=== PATIENT | female | born 1990 | race Hispanic/Latino ===

== ENCOUNTER 2019-05-13 02:46 | Emergency (ER) | payer SELFPAY ==
[~2019-05-13] VITALS: Ht 152.4 cm; Wt 108.9 kg
--- OUTSIDE RECORDS SUMMARY | 2019-05-13 02:49 | XMS REPORT ---
Author [facility] Address Unknown Phone Unavailable Care Team Providers Care Community Marketing Coordinator Name Role Phone Unavailable Unavailable Payers Payer Name Policy Type Policy Number Effective Date Expiration Date Problems This patient has no known problems. Allergies, Adverse Reactions, Alerts Allergy Name Allergy Type Status Severity Reaction(s) Onset Date Inactive Date Treating Clinician Comments No Known Allergies DA Active U 2019-03-28 00:00:00 No Known Allergies DA Active U 2018-10-29 00:00:00 No Known Allergies DA Active U 2016-08-11 00:00:00 Medications This patient has no known medications. Results Test Description Test Time Test Comments Text Results Atomic Results Result Comments CHLAMYDIA GC DNA BY PCR 2019-04-30 08:33:00 C. TRACHOMATIS DNA BY PCR (test code=CHLAMTDNA) TEST NOT PERFORMED () Test Not Performed. The APTIMA(R) Swab Transport receivedwas submitted with a cleaning swab (white shaft). Thecorrect swab is the blue or pink shaft collection swab. Seecollection instructions provided with the transport device.Notified Josh Mayorga at your facility.04/02/2019Timothy N. GONORRHOEAE DNA BY PCR (test code=NGONORDNA) TEST NOT PERFORMED () Test not performedPerformed At: [facility] [place], [place] [id number] miguel Rodriguez MD Ph:[phone] At: [facility] [address] [place], [place] [id number] Fortunato Patel MD Ph:[phone] [id number] 21:59:00* Test Item Value Reference Range Comments GLUBED (test code=GLUBED) 285 mg/dL 74-106 Performed by certified tractor operator helper at [facility] - CT HEAD/BRAIN W/O [id number] 20:29:00 Name: GUMARO GAXIOLA [facility] : 1990 Age/S: 28 / F [address] [facility] Unit #: [id number] Loc: [place] [address] Phys: Singh Smyth MD Acct: [id number] Dis Date: Status: REG ER PHONE #: [phone] Exam Date: 03/28/20192014 FAX #: [phone] Reason: HEADACHE AND WEIGHT LOSS EXAMS: CPT CODE: [id number] CT HEAD/BRAIN W/O CONT 46624 REASON FOR EXAM: HEADACHE AND WEIGHT LOSS EXAM ORDER DATE: 03/28/2019 6:47 PM Ordering M.D.: Singh Smyth MD PROCEDURE: - CT HEAD/BRAIN W/O CONT COMPARISON: FINDINGS: CT images of the brain were obtained without IV contrast. Dose modulation, iterative reconstruction, and/or weight based adjustment of the MA/KV was utilized to reduce the radiation dose to as low as reasonably achievable. The brain parenchyma is within normal limits. The al-white matter delineation is unremarkable. The ventricles, cisterns, and sulci are unremarkable. There is no evidence of hemorrhage, mass, mass effect. There is no evidence of acute or old infarct. The calvarium is intact. IMPRESSION: Unremarkable brain. at 2028 Reported and signed by : Silvio Reyes M.D. CC: Singh Smyth MD Technologist:AYSE CONWAY, RT(R) CT CTDI: DLP: Trnscb Date/Time: 03/28/2019 (2028) JulioL Orig Print D/T: S: 03/28/2019 (2031) PAGE 1 Signed Report - CT ABD PELVIS W/O [id number] 20:28:00 Name: GUMARO GAXIOLA [facility] : 1990 Age/S: 28 / F [address] [facility] Unit #: [id number] Loc: [place] [address] Phys: Sumit Smyth MD Acct: [id number] Di s Date: Status: REG ER PHONE #: [phone] Exam Date: 03/28/20192023 FAX #: Reason: LEFT FLANK RADIATING TO THE GROIN EXAMS: CPT CODE: [id number] CT ABD PELVIS W/O CONT 05519 REASON FOR EXAM: LEFT FLANK RADIATING TO THE GROIN EXAM ORDER DATE: 03/28/2019 6:47 PM Ordering MEmilee: Singh Smyth MD PROCEDURE: - CT ABD PELVIS W/O CONT COMPARISON: FINDINGS: CT imag es of the abdomen and pelvis were obtained without IV and without oral con trast at 5mm. Dose modulation, iterative reconstruction, and/or weight bas ed adjustment of the MA/KV was utilized to reduce the radiation dose to as low as reasonably achievable. The liver, spleen, and pancr eas are grossly within normal limits. The gall bladder is unremarkable by CT. The kidneys are within normal limits. The urinary bladder is unremarkable. The colon, small bowel, and stomach are within normal limits without evidence of obstruction. The appendix is unremark able No evidence of free air or free fluid. The uterus is unremark able. IMPRESSION: 5.5 cm left ovarian cyst. Small focal (2 cm) hypodense area in the left lobe of the liver near the gallbladder sugges tive of possible fatty focal hepatic infiltration. Leelee dennis Signed by Blanca Reyes on 03/28/2019 at 2027 Angel coburn and signed by: Silvio Reyes M.D. CC: Singh Smyth MD Technologist:AYSE CONWAY, RT(R) CT CTDI: DLP: Trnscb Date/Time: 03/28/2019 (2027) [email or web address] Orig Print D/T: S: 03/28/2019 (2030) PAGE 1 Signed Report BASIC METABOLIC [id number] 20:05:00* Test Item Value Reference Range Comments SODIUM (test code=NA) 134 mmol/L 136-145 POTASSIUM (test code=K) 3.6 mmol/L 3.5-5.1 CHLORIDE (test code=CL) 97.0 mmol/L 98-107 CARBON DIOXIDE (test code=CO2) 29.0 mmol/L 21-32 ANION GAP (test code=GAP) 11.6 10-20 GLUCOSE (test code=GLU) 332 mg/dL 74-106 BLOOD UREA NITROGEN (test code=BUN) 10 mg/dL 7-18 GLOMERULAR FILTRATION RATE (test code=GFR) > 60 mL/min >=60 Estimated GFR by using Modified MDRD formula.Chronic kidney disease is defined as either kidney damageor GFR <60 mL/min/1.73 m2 for >3 months. CREATININE (test code=CREAT) 0.70 mg/dL 0.55-1.02 Note change in reference range due to change in reagent. BUN/CREATININE RATIO (test code=BUN/CREA) 15.2 10-20 CALCIUM (test code=CA) 9.2 mg/dL 8.5-10.1 HEPATIC FUNCTION [id number] 20:05:00* Test Item Value Reference Range Comments TOTAL PROTEIN (test code=PROT) 8.3 gram/dL 6.4-8.2 ALBUMIN (test code=ALB) 3.6 g/dL 3.4-5.0 GLOBULIN (test code=GLOB) 4.7 gram/dL 2.7-4.2 ALBUMIN/GLOBULIN RATIO (test code=A/G) 0.8 0.75-1.50 BILIRUBIN TOTAL (test code=BILT) 0.50 mg/dL 0.0-1.0 BILIRUBIN DIRECT (test code=BILD) 0.13 mg/dL 0.0-0.20 SGOT/AST (test code=AST) 20 IUnit/L 15-37 SGPT/ALT (test code=ALT) 55 IUnit/L 12-78 ALKALINE PHOSPHATASE TOTAL (test code=ALKP) 108 IUnit/L 45-117 Note change in reference range due to change in reagent. HCG SERUM [id number] 20:05:00* Test Item Value Reference Range Comments HCG SERUM QUAL (test code=HCGQL) NEGATIVE NEGATIVE This HCGQL test is NOT applicable for MALE patients.Check with nurse about probable order error.If Tumor Marker Test needed, nurse should order test "HCGTU"(Test #550.51921) BASIC METABOLIC [id number] 19:54:00* Test Item Value Reference Range Comments SODIUM (test code=NA) 134 mmol/L 136-145 POTASSIUM (test code=K) 3.6 mmol/L 3.5-5.1 CHLORIDE (test code=CL) 97.0 mmol/L 98-107 CARBON DIOXIDE (test code=CO2) mmol/L 21-32 ANION GAP (test code=GAP) 10-20 GLUCOSE (test code=GLU) mg/dL 74-106 BLOOD UREA NITROGEN (test code=BUN) mg/dL 7-18 GLOMERULAR FILTRATION RATE (test code=GFR) mL/min >=60 CREATININE (test code=CREAT) mg/dL 0.55-1.02 BUN/CREATININE RATIO (test code=BUN/CREA) 10-20 CALCIUM (test code=CA) mg/dL 8.5-10.1 HEPATIC FUNCTION [id number] 19:54:00* Test Item Value Reference Range Comments TOTAL PROTEIN (test code=PROT) gram/dL 6.4-8.2 ALBUMIN (test code=ALB) g/dL 3.4-5.0 GLOBULIN (test code=GLOB) gram/dL 2.7-4.2 ALBUMIN/GLOBULIN RATIO (test code=A/G) 0.75-1.50 BILIRUBIN TOTAL (test code=BILT) mg/dL 0.0-1.0 BILIRUBIN DIRECT (test code=BILD) mg/dL 0.0-0.20 SGOT/AST (test code=AST) IUnit/L 15-37 SGPT/ALT (test code=ALT) IUnit/L 12-78 ALKALINE PHOSPHATASE TOTAL (test code=ALKP) IUnit/L 45-117 HCG SERUM [id number] 19:54:00* Test Item Value Reference Range Comments HCG SERUM QUAL (test code=HCGQL) NEGATIVE NEGATIVE This HCGQL test is NOT applicable for MALE patients.Check with nurse about probable order error.If Tumor Marker Test needed, nurse should order test "HCGTU"(Test #550.86326) CBC W/AUTO [id number] 19:53:00* Test Item Value Reference Range Comments WHITE BLOOD CELL (test code=WBC) 8.9 K/mm3 4.5-12.5 RED BLOOD CELL (test code=RBC) 4.79 mill/mm3 3.7-5.2 HEMOGLOBIN (test code=HGB) 14.5 gram/dL 11.5-15.5 HEMATOCRIT (test code=HCT) 43.4 % 36.0-46.0 MEAN CELL VOLUME (test code=MCV) 90.6 fL 80-98 MEAN CELL HGB (test code=MCH) 30.3 picogram 27.0-33.0 MEAN CELL HGB CONCETRATION (test code=MCHC) 33.4 gram/dL 33.0-36.0 RED CELL DISTRIBUTION WIDTH (test code=RDW) 11.8 % 11.6-16.2 RED CELL DISTRIBUTION WIDTH SD (test code=RDW-SD) 38.5 fL 37.0-51.0 PLATELET COUNT (test code=PLT) 264 K/mm3 150-450 MEAN PLATELET VOLUME (test code=MPV) 11.5 fL 6.7-11.0 NEUTROPHIL % (test code=NT%) 65.4 % 39.0-69.0 IMMATURE GRANULOCYTE % (test code=IG%) 0.6 % 0.0-5.0 LYMPHOCYTE % (test code=LY%) 26.5 % 25.0-55.0 MONOCYTE % (test code=MO%) 5.9 % 0.0-10.0 EOSINOPHIL % (test code=EO%) 1.0 % 0.0-5.0 BASOPHIL % (test code=BA%) 0.6 % 0.0-1.0 NUCLEATED RBC % (test code=NRBC%) 0.0 % 0-0 NEUTROPHIL # (test code=NT#) 5.80 K/mm3 1.8-7.7 IMMATURE GRANULOCYTE # (test code=IG#) 0.05 x10 3/uL 0-0.03 LYMPHOCYTE # (test code=LY#) 2.35 K/mm3 1.0-5.0 MONOCYTE # (test code=MO#) 0.52 K/mm3 0-0.8 EOSINOPHIL # (test code=EO#) 0.09 K/mm3 0.0-0.5 BASOPHIL # (test code=BA#) 0.05 K/mm3 0.0-0.2 NUCLEATED RBC # (test code=NRBC#) 0.00 K/mm3 0.0-0.1 BASIC METABOLIC [id number] 19:51:00* Test Item Value Reference Range Comments SODIUM (test code=NA) mmol/L 136-145 POTASSIUM (test code=K) mmol/L 3.5-5.1 CHLORIDE (test code=CL) mmol/L 98-107 CARBON DIOXIDE (test code=CO2) mmol/L 21-32 ANION GAP (test code=GAP) 10-20 GLUCOSE (test code=GLU) mg/dL 74-106 BLOOD UREA NITROGEN (test code=BUN) mg/dL 7-18 GLOMERULAR FILTRATION RATE (test code=GFR) mL/min >=60 CREATININE (test code=CREAT) mg/dL 0.55-1.02 BUN/CREATININE RATIO (test code=BUN/CREA) 10-20 CALCIUM (test code=CA) mg/dL 8.5-10.1 HEPATIC FUNCTION [id number] 19:51:00* Test Item Value Reference Range Comments TOTAL PROTEIN (test code=PROT) gram/dL 6.4-8.2 ALBUMIN (test code=ALB) g/dL 3.4-5.0 GLOBULIN (test code=GLOB) gram/dL 2.7-4.2 ALBUMIN/GLOBULIN RATIO (test code=A/G) 0.75-1.50 BILIRUBIN TOTAL (test code=BILT) mg/dL 0.0-1.0 BILIRUBIN DIRECT (test code=BILD) mg/dL 0.0-0.20 SGOT/AST (test code=AST) IUnit/L 15-37 SGPT/ALT (test code=ALT) IUnit/L 12-78 ALKALINE PHOSPHATASE TOTAL (test code=ALKP) IUnit/L 45-117 HCG SERUM [id number] 19:51:00* Test Item Value Reference Range Comments HCG SERUM QUAL (test code=HCGQL) NEGATIVE NEGATIVE This HCGQL test is NOT applicable for MALE patients.Check with nurse about probable order error.If Tumor Marker Test needed, nurse should order test "HCGTU"(Test #550.40266) CBC W/AUTO [id number] 19:48:00* Test Item Value Reference Range Comments WHITE BLOOD CELL (test code=WBC) K/mm3 4.5-12.5 RED BLOOD CELL (test code=RBC) mill/mm3 3.7-5.2 HEMOGLOBIN (test code=HGB) 14.5 gram/dL 11.5-15.5 HEMATOCRIT (test code=HCT) 43.4 % 36.0-46.0 MEAN CELL VOLUME (test code=MCV) fL 80-98 MEAN CELL HGB (test code=MCH) picogram 27.0-33.0 MEAN CELL HGB CONCETRATION (test code=MCHC) gram/dL 33.0-36.0 RED CELL DISTRIBUTION WIDTH (test code=RDW) % 11.6-16.2 RED CELL DISTRIBUTION WIDTH SD (test code=RDW-SD) fL 37.0-51.0 PLATELET COUNT (test code=PLT) K/mm3 150-450 MEAN PLATELET VOLUME (test code=MPV) fL 6.7-11.0 NEUTROPHIL % (test code=NT%) % 39.0-69.0 IMMATURE GRANULOCYTE % (test code=IG%) % 0.0-5.0 LYMPHOCYTE % (test code=LY%) % 25.0-55.0 MONOCYTE % (test code=MO%) % 0.0-10.0 EOSINOPHIL % (test code=EO%) % 0.0-5.0 BASOPHIL % (test code=BA%) % 0.0-1.0 NEUTROPHIL # (test code=NT#) K/mm3 1.8-7.7 LYMPHOCYTE # (test code=LY#) K/mm3 1.0-5.0 MONOCYTE # (test code=MO#) K/mm3 0-0.8 EOSINOPHIL # (test code=EO#) K/mm3 0.0-0.5 BASOPHIL # (test code=BA#) K/mm3 0.0-0.2 URINALYSIS [id number] 18:56:00* Test Item Value Reference Range Comments UA COLOR (test code=COLU) Light [place] YELLOW UA APPEARANCE (test code=APPU) HAZY CLEAR UA GLUCOSE DIPSTICK (test code=DGLUU) 300-500 (3+) mg/dL NEGATIVE UA BILIRUBIN DIPSTICK (test code=BILU) NEGATIVE NEGATIVE UA KETONE DIPSTICK (test code=KETU) NEGATIVE mg/dL NEGATIVE UA SPECIFIC GRAVITY (test code=SGU) <=1.005 1.001-1.035 UA BLOOD DIPSTICK (test code=ELENA) 3+ (Large) NEGATIVE UA PH DIPSTICK (test code=MODESTA) 6.0 5.0-8.0 UA PROTEIN DIPSTICK (test code=PROU) NEGATIVE mg/dL Neg-15 UA UROBILINIOGEN DIPSTICK (test code=URO) 0.2 mg/dL 0.0-0.2 UA NITRITE DIPSTICK (test code=HEMALATHA) NEGATIVE NEGATIVE UA LEUKOCYTE ESTERASE W REFLEX (test code=LEUUR) NEGATIVE NEGATIVE UA WBC (test code=WBCU) 0-5 per HPF 0-5 UA RBC (test code=RBCU) 51-100 #/HPF 0-5 UA EPITHELIAL CELLS (test code=EPIU) FEW per HPF FEW UA BACTERIA (test code=BACU) NONE SEEN #/HPF NONE Urine Source? Clean CatchURINALYSIS [id number] 18:53:00* Test Item Value Reference Range Comments UA COLOR (test code=COLU) Light [place] YELLOW UA APPEARANCE (test code=APPU) HAZY CLEAR UA GLUCOSE DIPSTICK (test code=DGLUU) 300-500 (3+) mg/dL NEGATIVE UA BILIRUBIN DIPSTICK (test code=BILU) NEGATIVE NEGATIVE UA KETONE DIPSTICK (test code=KETU) NEGATIVE mg/dL NEGATIVE UA SPECIFIC GRAVITY (test code=SGU) <=1.005 1.001-1.035 UA BLOOD DIPSTICK (test code=ELENA) 3+ (Large) NEGATIVE UA PH DIPSTICK (test code=MODESTA) 6.0 5.0-8.0 UA PROTEIN DIPSTICK (test code=PROU) NEGATIVE mg/dL Neg-15 UA UROBILINIOGEN DIPSTICK (test code=URO) 0.2 mg/dL 0.0-0.2 UA NITRITE DIPSTICK (test code=HEMALATHA) NEGATIVE NEGATIVE UA LEUKOCYTE ESTERASE W REFLEX (test code=LEUUR) NEGATIVE NEGATIVE UA WBC (test code=WBCU) per HPF 0-5 UA RBC (test code=RBCU) per HPF 0-5 UA EPITHELIAL CELLS (test code=EPIU) per HPF Few UA BACTERIA (test code=BACU) per HPF NONE Urine Source? Clean Catch- US TRANSVAGINAL NON [id number] 21:08:00 Name: GUMARO GAXIOLA [facility] : 1990 Age/S: 28 / F [address] [facility] Unit #: [id number] Loc: [place] [address] Phys: Zepeda MD Acct: [id number] Di s Date: Status: REG ER PHONE #: Exam Date: 12/31/20182056 FAX #: [phone] Reason: Vaginal bleeding EXAMS: CPT CODE: [id number] [place] [address] HISTORY: VAGINAL BLEEDING /PELVIC PAIN TECHNIQUE: Static grayscale and color Doppler images from real-time transabdominal sonographic evaluation of the pelvis. Images from endovaginal probe were also acquired for better visualization of endometrial canal and adnexal structures. COMPARISON: None FINDINGS: Uterus measures 8.1 x 3.7 x 4.0 cm (length x AP x tra nsverse dimensions). Endometrial stripe is normal thickness at 5 mm. Right ovary measures 3.2 x 2.2 x 2.8 cm. Simple 2.2 cm cyst. Sat isfactory color Doppler flow and spectral waveform is detected. Le ft ovary measures 2.3 x 1.6 x 1.7 cm. No mass or dominant cyst. Satisfacto ry color Doppler flow and spectral waveform is detected. No adnexa l mass. No pelvic free fluid. IMPRESSION: Simple 2.2 cm right ovarian cyst. E lectronically Signed by Ama Foley D.O. on 12/31/2018 at 2108 Reported and signed by: Ama Foley D.O. CC: Jules Beverly MD Technologist: Yesi Romero RDMS Trnscb Date/Time: 12/31/2018 (2107) [id number] Orig Print D/T: S: 12/31/2018 (2110) Probe: [id number] PAGE 1 Signed Report - US PELVIS [id number] 21:08:00 Name: GUMARO GAXIOLA [facility] : 1990 Age/S: F [address] [facility] Unit #: [id number] Loc: [place] [address] Phys: Jules Beverly MD Acct: [id number] Dis Date: Status: REG ER PHONE #: [phone] Exam Date: 12/31/20182056 FAX #: [phone] Reason: VAGINAL BLEEDING/PELVIC PAIN EXAMS: CPT CODE: [id number] US PELVIS COMPLETE 47738 HISTORY: VAGINAL BLEEDING/PELVIC PAIN TECHNIQUE: Static grayscale and color Doppler images from real-time transabdominal sonographic evaluation of the pelvis. Images from endovaginal probe were also acquired for better visualization of endometrial canal and adnexal structures. COMPARISON: None FINDINGS: Uterus measures 8.1 x 3.7 x 4.0 cm (length x AP x tra nsverse dimensions). Endometrial stripe is normal thickness at 5 mm. Right ovary measures 3.2 x 2.2 x 2.8 cm. Simple 2.2 cm cyst. Sat isfactory color Doppler flow and spectral waveform is detected. Le ft ovary measures 2.3 x 1.6 x 1.7 cm. No mass or dominant cyst. Satisfacto ry color Doppler flow and spectral waveform is detected. No adnexa l mass. No pelvic free fluid. IMPRESSION: Simple 2.2 cm right ovarian cyst. E lectronically Signed by Ama Foley D.O. on 12/31/2018 at 2108 Reported and signed by: Ama Foley D.O. CC: Jules Beverly MD Technologist: Yesi Romero RDMS Trnscb Date/Time: 12/31/2018 (2107) [id number] Orig Print D/T: S: 12/31/2018 (2110) Probe: PAGE 1 Signed Report BASIC METABOLIC [id number] 20:24:00* Test Item Value Reference Range Comments SODIUM (test code=NA) 132 mmol/L 135-148 POTASSIUM (test code=K) 3.7 mmol/L 3.5-5.1 CHLORIDE (test code=CL) 98 mmol/L 101-109 CARBON DIOXIDE (test code=CO2) 24.6 mmol/L 21-32 ANION GAP (test code=GAP) 13 mmol/L 10-20 GLUCOSE (test code=GLU) 557 mg/dL 74-106 Results called to Suleman WILLIAMSON V.LAB.CB1 12/31/183Critical results verified and read back by Nurse? Y BLOOD UREA NITROGEN (test code=BUN) 10 mg/dL 3-21 GLOMERULAR FILTRATION RATE (test code=GFR) > 60 mL/min >=60 Estimated GFR by using Modified MDRD formula.Chronic kidney disease is defined as either kidney damageor GFR <60 mL/min/1.73 m2 for >3 months. CREATININE (test code=CREAT) 0.87 mg/dL 0.55-1.3 BUN/CREATININE RATIO (test code=BUN/CREA) 11.5 10-20 CALCIUM (test code=CA) 9.1 mg/dL 8.4-10.2 HEPATIC FUNCTION [id number] 20:24:00* Test Item Value Reference Range Comments TOTAL PROTEIN (test code=PROT) 7.5 g/dL 6.5-8.4 ALBUMIN (test code=ALB) 3.1 g/dL 3.4-4.8 GLOBULIN (test code=GLOB) 4.4 G/DL 1-10 ALBUMIN/GLOBULIN RATIO (test code=A/G) 0.7 RATIO 0.75-1.50 BILIRUBIN TOTAL (test code=BILT) 0.30 mg/dL 0.0-1.0 BILIRUBIN DIRECT (test code=BILD) 0.10 mg/dL 0.0-0.30 SGOT/AST (test code=AST) 26 U/L 6-32 SGPT/ALT (test code=ALT) 58 U/L 12-78 Note: Change in REFERENCE RANGE due to new reagent method. ALKALINE PHOSPHATASE TOTAL (test code=ALKP) 114 U/L 38-126 HCG SERUM [id number] 20:24:00* Test Item Value Reference Range Comments HCG SERUM BETA (test code=HCG) 0.0 mIU/ml 0-5.0 INTERPRETATION:B-HCG LEVELS <6 SHOULD BE CONSIDERED "NEGATIVE."VALUES BETWEEN 6-25 MIU/ML NEED TO BE RETESTED WITHIN 48hrs. 0-1 WEEKS AFTER CONCEPTION 0-50 MIU/ML1-2 WEEKS AFTER CONCEPTION 40-300 MIU/ML2-3 WEEKS AFTER CONCEPTION 100-1,000 MIU/ML3-4 WEEKS AFTER CONCEPTION 500-6,000 MIU/ML1-2 MONTHS AFTER CONCEPTION 5,000-200,000 MIU/ML2-3 MONTHS AFTER CONCEPTION 10,000-100,000 MIU/ML2ND TRIMESTER 3,000-50,000 MIU/ML3RD TRIMESTER 1,000-50,000 MIU/ML CBC W/O [id number] 19:55:00* Test Item Value Reference Range Comments WHITE BLOOD CELL (test code=WBC) 7.1 K/mm3 4.5-12.5 RED BLOOD CELL (test code=RBC) 4.83 mill/mm3 3.7-5.2 HEMOGLOBIN (test code=HGB) 14.6 gram/dL 11.5-15.5 HEMATOCRIT (test code=HCT) 43.9 % 36.0-46.0 MEAN CELL VOLUME (test code=MCV) 90.9 fL 80-98 MEAN CELL HGB (test code=MCH) 30.2 picogram 27.0-33.0 MEAN CELL HGB CONCETRATION (test code=MCHC) 33.3 gram/dL 33.0-36.0 RED CELL DISTRIBUTION WIDTH (test code=RDW) 11.8 % 11.6-16.2 RED CELL DISTRIBUTION WIDTH SD (test code=RDW-SD) 40.6 fL 37.0-51.0 PLATELET COUNT (test code=PLT) 222 K/mm3 150-450 MEAN PLATELET VOLUME (test code=MPV) 11.0 fL 6.7-11.0 URINALYSIS [id number] 19:39:00* Test Item Value Reference Range Comments UA COLOR (test code=COLU) COLORLESS YELLOW UA APPEARANCE (test code=APPU) CLEAR CLEAR UA GLUCOSE DIPSTICK (test code=DGLUU) 1000 (3+) mg/dL NEGATIVE UA BILIRUBIN DIPSTICK (test code=BILU) NEGATIVE mg/dL NEGATIVE UA KETONE DIPSTICK (test code=KETU) 15 (1+) mg/dL NEGATIVE UA SPECIFIC GRAVITY (test code=SGU) 1.010 1.001-1.035 UA BLOOD DIPSTICK (test code=ELENA) 250 (4+) Kristian/uL NEGATIVE UA PH DIPSTICK (test code=MODESTA) 6.0 5.0-8.0 UA PROTEIN DIPSTICK (test code=PROU) neg mg/dL Neg-15 UA UROBILINIOGEN DIPSTICK (test code=URO) norm mg/dL 0.0-0.2 UA NITRITE DIPSTICK (test code=HEMALATHA) NEGATIVE NEGATIVE UA LEUKOCYTE ESTERASE DIPSTICK (test code=LEUU) neg uL NEGATIVE UA WBC (test code=WBCU) 0-5 per HPF 0-5 UA RBC (test code=RBCU) 50-100 per HPF 0-5 UA EPITHELIAL CELLS (test code=EPIU) Few (2-5/hpf) per HPF Few UA BACTERIA (test code=BACU) FEW per HPF NONE Urine Source? Clean CatchUR HCG [id number] 19:39:00* Test Item Value Reference Range Comments UR HCG QUAL (test code=HCGQLU) NEGATIVE This HCGQL test is NOT applicable for MALE patients.Check with nurse about probable order error.If Tumor Marker Test needed, nurse should order test "HCGTU"(Test #550.64532) Urine Source? Clean Catch
[2019-05-13] MEDS ORDERED: ONDANSETRON HCL INJ 2MG/ML 2ML 2 MG/ML VIAL IV STA ×2 (02:52)
[2019-05-13] MEDS ORDERED: MULTIVITAMINS- 12 INJECTION 10 ML, FOLIC ACID MDV 5 MG, THIAMINE HCL INJ 100 MG in SODI... IV ONE (03:00)
[2019-05-13 03:10] LABS: BASOPHILS # (AUTO) 0.1 (0.0-0.1); BASOPHILS % 0.8 % (0.0-1.0); EOSINOPHILS % 0.3 % (0.0-6.0); HEMATOCRIT 43.2 % (34.2-44.1); HEMOGLOBIN 14.4 g/dL (12.0-16.0); LYMPHOCYTES # (AUTO) 3.1 (1.0-3.2); LYMPHOCYTES % 41.8 % (18.0-39.1); MEAN CORPUSCULAR HEMOGLOBIN 30.5 pg (28-32); MEAN CORPUSCULAR HGB CONC 33.3 g/dL (31-35); MEAN CORPUSCULAR VOLUME 91.5 fL (81-99); MONOCYTES # (AUTO) 0.6 (0.2-0.8); MONOCYTES % 8.5 % (4.4-11.3); NEUTROPHILS # (AUTO) 3.5 (2.1-6.9); NEUTROPHILS % 48.1 % (38.7-80.0); PLATELET COUNT 230 x10e3/uL (140-360); RED BLOOD COUNT 4.72 x10e6/uL (3.6-5.1); RED CELL DISTRIBUTION WIDTH 11.8 % (11.7-14.4)
[2019-05-13] MEDS ORDERED: FOLIC ACID 5 MG/ML VIAL ONE (03:17)
[2019-05-13] MEDS ORDERED: THIAMINE HCL INJ 100 MG/ML 2ML VIAL ONE (03:17)
[2019-05-13] MEDS ORDERED: MULTIVITAMINS INJECTION ONE (03:18)
[2019-05-13 03:41] LABS: ALANINE AMINOTRANSFERASE 31 IU/L (0-55); ALBUMIN 3.5 g/dL (3.5-5.0); ALBUMIN/GLOBULIN RATIO 0.9 (0.8-2.0); ALKALINE PHOSPHATASE 95 IU/L (40-150); ANION GAP 17.9 mmol/L (8-16); BLOOD UREA NITROGEN 7 mg/dL (7-26); BUN/CREATININE RATIO 9 (6-25); CALCIUM 8.9 mg/dL (8.4-10.2); CARBON DIOXIDE 20 mmol/L (22-29); CHLORIDE 104 mmol/L (98-107); CREATININE, SERUM 0.78 mg/dL (0.57-1.11); EST GLOMERULAR FILTRATION RATE > 60 ML/MIN (60-); GLUCOSE 390 mg/dL (74-118); POTASSIUM 4.9 mmol/L (3.5-5.1); SODIUM 137 mmol/L (136-145)
--- NOTE | 2019-05-13 03:50 | Diagnostic Imaging Report ---
CT BRAIN WO HISTORY: Altered mental status COMPARISON: None. TECHNIQUE: Noncontrast axial scans were obtained from skull base to the vertex. Coronal and sagittal reconstructions obtained from the axial data. One or more of the following dose reduction techniques were used: Automated exposure control, adjustment of the mA and/or kV according to patient size, and/or utilization of iterative reconstruction technique. DISCUSSION: Scalp/Skull: Unremarkable. Brain sulci: Appropriate for patient's age. Ventricles: Normal in size and configuration. No hydrocephalus. Extra-axial spaces: No masses or fluid collections. Parenchyma: No abnormal densities. No mass, hemorrhage, or large vascular territory acute infarct. Dural sinuses: No abnormal densities. Sellar/Suprasellar region: Intact. Skull base: Intact. Incidental findings: None. IMPRESSION: No intracranial abnormalities. Signed by: Dr. Nino Tan M.D. on 05/13/2019 3:46 AM
[2019-05-13 04:24] LABS: BILIRUBIN,URINE NEGATIVE (NEGATIVE); CLARITY,URINE CLEAR (CLEAR); COLOR,URINE YELLOW (YELLOW); KETONES,URINE 1+ (NEGATIVE); LEUKOCYTE ESTERASE ,URINE NEGATIVE (NEGATIVE); NITRITE,URINE NEGATIVE (NEGATIVE); PROTEIN,URINE DIPSTICK NEGATIVE (NEGATIVE); URINE UROBILINOGEN 0.2 mg/dL (0.2 - 1)
[2019-05-13] MEDS ORDERED: INSULIN REGULAR, HUMAN 100 UNIT/1 ML 3ML VIAL SQ ONE ×2 (04:30)
[2019-05-13 04:38] LABS: AMPHETAMINES SCREEN,URINE NEGATIVE (NEGATIVE); BENZODIAZEPINES SCREEN,URINE NEGATIVE (NEGATIVE); PHENCYCLIDINE SCREEN,URINE NEGATIVE (NEGATIVE); PREGNANCY TEST, URINE NEGATIVE (NEGATIVE)
[2019-05-13 04:53] LABS: BACTERIA,URINE FEW /HPF; EPITHELIAL CELLS,URINE FEW /LPF; RBC,URINE 0-5 /HPF (0-5); WBC,URINE (MAN) 0-5 /HPF (0-5)
[2019-05-13 05:20] LABS: BLAST CELLS % MANUAL 2; LYMPHOCYTES % (MANUAL) 41 % (19-48); MONOCYTES % (MANUAL) 11 % (3.4-9.0); NEUTROPHILS % (MANUAL) 44 % (40-74); PLATELET MORPHOLOGY COMMENT NORMAL; PROMYELOCYTES % (MANUAL) 2 % (0-0); RBC MORPHOLOGY COMMENT NORMAL
[2019-05-13 05:21] LABS: PLATELET ESTIMATE ADEQUATE
[2019-05-13 06:32] LABS: ANION GAP 14.5 mmol/L (8-16); BLOOD UREA NITROGEN 6 mg/dL (7-26); BUN/CREATININE RATIO 10 (6-25); CALCIUM 7.9 mg/dL (8.4-10.2); CARBON DIOXIDE 19 mmol/L (22-29); CHLORIDE 109 mmol/L (98-107); CREATININE, SERUM 0.59 mg/dL (0.57-1.11); EST GLOMERULAR FILTRATION RATE > 60 ML/MIN (60-); GLUCOSE 276 mg/dL (74-118); POTASSIUM 3.5 mmol/L (3.5-5.1); SODIUM 139 mmol/L (136-145)
[2019-05-13 06:49] VITALS: BP 98/55
== END 2019-05-13 07:00 | disposition home or self-care (01) ==
LOC: ER 02:46
DX: F10.129 Alcohol abuse with intoxication, unspecified (principal); Z83.3 Family history of diabetes mellitus; Z82.49 Family history of ischemic heart disease and other diseases of the circulatory system
CPT/HCPCS: 36415; 70450; 80048; 80053; 80307; 80320; 81001; 81025; 82948; 85025; 99284; J1817; J2405; J3411

== ENCOUNTER 2023-11-10 08:38 | Emergency (ER) | payer OTHER ==
[~2023-11-10] VITALS: Ht 160 cm; Wt 95.0 kg
[2023-11-10] MEDS: ACETAMINOPHEN 1000 MG/100 ML IV STA (09:54)
[2023-11-10] MEDS ORDERED: LACTATED RINGER'S 1,000 ML ONE (09:54)
[2023-11-10] MEDS ORDERED: ACETAMINOPHEN 1000 MG/100 ML 100 ML IV ONE (09:54)
[2023-11-10] MEDS: LACTATED RINGER'S 1,000 ML IV ONE (09:54)
[2023-11-10 11:15] VITALS: O2SAT 98
== END 2023-11-10 13:00 | disposition other institution (70) ==
LOC: FSED 08:43
DX: O26.891 Other specified pregnancy related conditions, first trimester (principal); O21.0 Mild hyperemesis gravidarum; E11.65 Type 2 diabetes mellitus with hyperglycemia; R10.2 Pelvic and perineal pain; N28.9 Disorder of kidney and ureter, unspecified; R10.32 Left lower quadrant pain
CPT/HCPCS: 76801; 76817; 76830; 80048; 80076; 81003; 81025; 85025; 99284; J0131; J7121

== ENCOUNTER 2024-03-29 11:52 | Emergency (ER) | payer OTHER ==
[~2024-03-29] VITALS: Ht 157.5 cm; Wt 105.2 kg
[2024-03-29 12:15] VITALS: PULSE 103; RESP 20; TEMP 98.1
== END 2024-03-29 12:25 | disposition home or self-care (01) ==
LOC: FSED 12:16
DX: O47.03 False labor before 37 completed weeks of gestation, third trimester (principal); O24.419 Gestational diabetes mellitus in pregnancy, unspecified control; R10.2 Pelvic and perineal pain
CPT/HCPCS: 99282